=== PATIENT | female | born 1970 | race Caucasian/White ===

== ENCOUNTER 2022-03-13 14:19 | Emergency (ER) | payer OTHER ==
[~2022-03-13] VITALS: Ht 172.7 cm; Wt 72.6 kg
[2022-03-13] MEDS ORDERED: AMOX-CLAV 875-1 EAC1 PO (18:23)
== END 2022-03-13 18:28 | disposition home or self-care (01) ==
LOC: ER 14:19
DX: J02.9 Acute pharyngitis, unspecified (principal); Z20.822 Contact with and (suspected) exposure to COVID-19; Z88.2 Allergy status to sulfonamides